=== PATIENT | female | born 1975 | race Caucasian/White ===

== ENCOUNTER 2018-10-29 15:37 | Emergency (ER) | payer MEDICAID ==
[~2018-10-29] VITALS: Ht 157.5 cm; Wt 103.4 kg
[2018-10-29 15:44] VITALS: Ht 157.5 cm; Wt 103.4 kg
[2018-10-29 17:43] VITALS: BP 140/80
== END 2018-10-29 17:43 | disposition home or self-care (01) ==
LOC: ED 15:37
DX: R07.89 Other chest pain (principal); J01.90 Acute sinusitis, unspecified; R20.0 Anesthesia of skin; I10 Essential (primary) hypertension

== ENCOUNTER 2020-04-13 11:20 | Emergency (ER) | payer SELFPAY ==
[~2020-04-13] VITALS: Ht 152.4 cm; Wt 103.9 kg
[2020-04-13 11:26] VITALS: Ht 152.4 cm; Wt 103.9 kg
[2020-04-13 14:27] VITALS: BP 155/62
== END 2020-04-13 14:27 | disposition home or self-care (01) ==
LOC: ED 11:20
DX: R51 Headache (principal); I10 Essential (primary) hypertension
CPT/HCPCS: J1885